=== PATIENT | female | born 1950 | race Caucasian/White ===

== ENCOUNTER 2017-11-27 12:26 | Emergency (ER) | payer MEDICARE, OTHER ==
[2017-11-27] MEDS ORDERED: Sodium Chloride 0.9% 10 ML Syringe FLUSH PRN (12:44)
[2017-11-27 12:55] LABS: BASE EXCESS ARTERIAL 1 mmol/L ((-2)-(+3)); BICARBONATE,ARTERIAL 25.4 mmol/L (22-26); O2 DELIVERY DEVICE NON REBR MASK; O2 SATURATION ARTERIAL 99 % (95-100); PCO2 ARTERIAL 42 mmHg (35-45); PO2 ARTERIAL 209 mmHg (70-100)
[2017-11-27 12:56] LABS: ALLEN TEST POSITIVE
[2017-11-27 12:57] LABS: O2 FLOW RATE 15
[2017-11-27 13:15] LABS: ANION GAP 13.8; CHLORIDE,CL 102 mmol/L (101-111); SODIUM,NA 139 mmol/L (135-145)
--- NOTE | 2017-11-27 15:26 | EDM.PDOC ---
Scribed by Meg Ojeda 11/27/17 1492 for Aimee Cervantes NP ED HPI GENERAL MEDICAL PROBLEM - General Chief Complaint: Syncope Stated Complaint: [id number] SICK Time Seen by Provider: 11/27/17 12:45 Source of Information: Reports: Patient, RN, RN Notes Reviewed History Limitations: Reports: No Limitations - History of Present Illness INITIAL COMMENTS - FREE TEXT/NARRATIVE: Patient presents to ER with family with complaint of possible carbon monoxide poisoning. Patient's states they switched propane tanks about 1 a.m.. The carbon monoxide alarm went off. He states it went off again at about 2: 30a.m. He states he opened windows and the alarm shut off and never went off again. Prior to arrival patient became very dizzy, shortness of breath and weak. Patient states she still a little dizzy at times. She states she has had hypoglycemic at times. Denies recent illness, fever, and chills. Although did feel flushed prior to episode. She has had blurred vision during episode. No chest pain, shortness of breath,nausea, vomiting and diarrhea. Onset: Today Duration: Constant Location: Reports: Chest Quality: Reports: Ache Severity: Mild Improves with: Reports: None Worsens with: Reports: None Associated Symptoms: Reports: No Other Symptoms - Related Data Allergies Allergy/AdvReac Type Severity Reaction Status Date / Time No Known Allergies Allergy Verified 11/27/17 12:53 Home Meds: Home Meds . [No Known Home Meds] 11/27/17 [History] ED ROS GENERAL - Review of Systems Review Of Systems: ROS reveals no pertinent complaints other than HPI. ED EXAM, DIZZINESS - Physical Exam Exam: See Below Exam Limited By: No Limitations General Appearance: Alert, WD/WN, No Apparent Distress Eye Exam: Bilateral Eye: EOMI, Normal Inspection, PERRL Ears: Normal External Exam, Normal Canal, Hearing Grossly Normal, Normal TMs Nose: Normal Inspection, Normal Mucosa, No Blood Throat/Mouth: Normal Inspection, Normal Lips, Normal Teeth, Normal Gums, Normal Oropharynx, Normal Voice, No Airway Compromise Head Exam: Atraumatic, Normocephalic Neck: Normal Inspection, Supple, Non-Tender, Full Range of Motion Respiratory/Chest: No Respiratory Distress, Lungs Clear, Normal Breath Sounds, No Accessory Muscle Use, Chest Non-Tender Cardiovascular: Normal Peripheral Pulses, Regular Rate, Rhythm, No Edema, No Gallop, No JVD, No Murmur, No Rub GI/Abdominal: Normal Bowel Sounds, Soft, Non-Tender, No Organomegaly, No Distention, No Abnormal Bruit, No Mass (Female) Exam: Deferred Rectal (Female) Exam: Deferred Neurological: Alert, Normal Mood/Affect, Normal Dorsiflexion, CN II-XII Intact, Normal Plantar Flexion, Normal Gait, Normal Reflexes, No Motor/Sensory Deficits , Oriented x 3 Back Exam: Normal Inspection, Full Range of Motion, NT Extremities: Normal Inspection, Normal Range of Motion, Non-Tender, No Pedal Edema, Normal Capillary Refill Psychiatric: Normal Affect, Normal Mood Skin Exam: Warm, Dry, Intact, Normal Color, No Rash EKG INTERPRETATION EKG Date: 11/27/17 Time: 12:51 Rhythm: Other (sinus rhythm) Rate (Beats/Min): 69 Gowen: Normal P-Wave: Present QRS: Normal ST-T: Normal QT: Normal Course - Vital Signs Last Recorded V/S: Last Vital Signs Temp 96.7 F 11/27/17 12:32 Pulse 88 11/27/17 14:45 Resp 18 11/27/17 12:32 BP 113/49 L 11/27/17 14:45 Pulse Ox 95 11/27/17 14:45 - Orders/Labs/Meds Orders: Active Orders 24 hr Category Date Time Status EKG Documentation Completion [RC] STAT Care 11/27/17 12:44 Active Glucose [Blood Glucose Check, Bedside] [RC] ONETIME Care 11/27/17 12:32 Active Oxygen Therapy, ED [RC] ASDIRECTED Care 11/27/17 12:45 Active Peripheral IV Care [RC] . DIRECTED Care 11/27/17 12:46 Active Head wo Cont [CT] Urgent Exams 11/27/17 13:36 Taken CARBOXYHEMOGLOBIN [REF] Stat Lab 11/27/17 12:47 Ordered Sodium Chloride 0.9% [Saline Flush] Med 11/27/17 12:44 Active 10 ml FLUSH ASDIRECTED PRN Peripheral IV Insertion Adult [OM.PC] Stat Oth 11/27/17 12:44 Ordered Medication Orders Sodium Chloride (Saline Flush) 10 ml FLUSH ASDIRECTED PRN PRN Reason: Keep Vein Open Last Admin: 11/27/17 13:05 Dose: 10 ml Labs: Laboratory Tests 11/27/17 11/27/17 11/27/17 Range/Units 12:32 12:47 12:51 WBC 9.0 (5.0-10.0) 10^3/uL RBC 4.31 (4.2-5.4) 10^6/uL Hgb 13.3 (12.0-16.0) g/dL Hct 40.5 (37.0-47.0) % MCV 94.0 (80-100) fL MCH 30.9 (27.0-34.0) pg MCHC 32.8 L (33.0-35.0) g/dL Plt Count 239 (150-450) 10^3/uL Neut % (Auto) 53.9 (42.2-75.2) % Lymph % (Auto) 37.8 (20.5-50.1) % [place] % (Auto) 6.9 (2-8) % Eos % (Auto) 1.0 (1.0-3.0) % Baso % (Auto) 0.4 (0.0-1.0) % ABG pH 7.39 (7.35-7.45) ABG pCO2 42 (35-45) mmHg ABG pO2 209 H (70-100) mmHg ABG HCO3 25.4 (22-26) mmol/L ABG O2 Saturation 99 (95-100) % ABG Base Excess 1 ((-2)-(+3)) mmol/L Edy Test Positive O2 Delivery Device Non rebr mask Oxygen Flow Rate 15 Sodium (135-145) mmol/L Potassium (3.6-5.0) mmol/L Chloride (101-111) mmol/L Carbon Dioxide (21.0-31.0) mmol/L Anion Gap BUN (7-18) mg/dL Creatinine (0.6-1.3) mg/dL Est Cr Clr Drug Dosing mL/min Estimated GFR (MDRD) BUN/Creatinine Ratio Glucose (74-105) mg/dL POC Glucose 174 H (70-105) mg/dl Calcium (8.4-10.2) mg/dl Total Bilirubin (0.2-1.0) mg/dL AST (10-42) IU/L ALT (10-60) IU/L Alkaline Phosphatase (42-121) IU/L Troponin I (0.00-0.02) ng/ml Total Protein (6.7-8.2) g/dl Albumin (3.2-5.5) g/dl Globulin Albumin/Globulin Ratio Urine Color (YELLOW) Urine Appearance (CLEAR) Urine pH (5.0-9.0) Ur Specific Harlan (1.005-1.030) Urine Protein (NEGATIVE) Urine Glucose (UA) (NEGATIVE) Urine Ketones (NEGATIVE) Urine Occult Blood (NEGATIVE) Urine Nitrite (NEGATIVE) Urine Bilirubin (NEGATIVE) Urine Urobilinogen (0.2-1.0) mg/dL Ur Leukocyte Esterase (NEGATIVE) Urine RBC /HPF Urine WBC (0-5/HPF) /HPF Ur Epithelial Cells /HPF Urine Bacteria (0-FEW/HPF) /HPF Hyaline Casts /LPF Urine Mucus /LPF 11/27/17 11/27/17 Range/Units 12:51 13:03 WBC (5.0-10.0) 10^3/uL RBC (4.2-5.4) 10^6/uL Hgb (12.0-16.0) g/dL Hct (37.0-47.0) % MCV (80-100) fL MCH (27.0-34.0) pg MCHC (33.0-35.0) g/dL Plt Count (150-450) 10^3/uL Neut % (Auto) (42.2-75.2) % Lymph % (Auto) (20.5-50.1) % [place] % (Auto) (2-8) % Eos % (Auto) (1.0-3.0) % Baso % (Auto) (0.0-1.0) % ABG pH (7.35-7.45) ABG pCO2 (35-45) mmHg ABG pO2 (70-100) mmHg ABG HCO3 (22-26) mmol/L ABG O2 Saturation (95-100) % ABG Base Excess ((-2)-(+3)) mmol/L Edy Test O2 Delivery Device Oxygen Flow Rate Sodium 139 (135-145) mmol/L Potassium 3.8 (3.6-5.0) mmol/L Chloride 102 (101-111) mmol/L Carbon Dioxide 27.0 (21.0-31.0) mmol/L Anion Gap 13.8 BUN 10 (7-18) mg/dL Creatinine 0.9 (0.6-1.3) mg/dL Est Cr Clr Drug Dosing 47.32 mL/min Estimated GFR (MDRD) > 60 BUN/Creatinine Ratio 11.11 Glucose 167 H (74-105) mg/dL POC Glucose (70-105) mg/dl Calcium 9.0 (8.4-10.2) mg/dl Total Bilirubin 0.6 (0.2-1.0) mg/dL AST 30 (10-42) IU/L ALT 20 (10-60) IU/L Alkaline Phosphatase 69 (42-121) IU/L Troponin I < 0.02 (0.00-0.02) ng/ml Total Protein 7.0 (6.7-8.2) g/dl Albumin 4.1 (3.2-5.5) g/dl Globulin 2.9 Albumin/Globulin Ratio 1.41 Urine Color Yellow (YELLOW) Urine Appearance Clear (CLEAR) Urine pH 7.5 (5.0-9.0) Ur Specific Harlan 1.015 (1.005-1.030) Urine Protein Negative (NEGATIVE) Urine Glucose (UA) Negative (NEGATIVE) Urine Ketones Negative (NEGATIVE) Urine Occult Blood Negative (NEGATIVE) Urine Nitrite Negative (NEGATIVE) Urine Bilirubin Negative (NEGATIVE) Urine Urobilinogen 0.2 (0.2-1.0) mg/dL Ur Leukocyte Esterase Small H (NEGATIVE) Urine RBC 0-5 /HPF Urine WBC 5-10 H (0-5/HPF) /HPF Ur Epithelial Cells Few /HPF Urine Bacteria Few (0-FEW/HPF) /HPF Hyaline Casts Moderate H /LPF Urine Mucus Few H /LPF Meds: Medications Generic Name Dose Route Start Last Admin Trade Name Freq PRN Reason Stop Dose Admin Sodium Chloride 10 ml 11/27/17 12:44 11/27/17 13:05 Saline Flush FLUSH 10 ml ASDIRECTED PRN Administration Keep Vein Open - Radiology Interpretation Free Text/Narrative:: Chest xray: IMPRESSION: 1. The lungs are hyperinflated, consistent with underlying small airways disease. 2. No focal pneumonia or pneumothorax. 3. Mild atelectasis right lung base. Thank you for allowing us to participate in the care of your patient. Dictated and Authenticated by: Joaquin Hernandez DO Head CT: IMPRESSION: 1. Partially calcified mass present within the high left parietal region at the midline. Most likely consideration is meningioma, however other etiologies are not excluded. Mild mass effect and surrounding edema present. Further evaluation with an MRI of the brain with and without contrast recommended in followup. 2. No evidence of acute hemorrhage. Thank you for allowing us to participate in the care of your patient. Dictated and Authenticated by: Joaquin Hernandez DO 11/27/2017 2:16 PM Central Time ([place] & [place]) See rad report - Re-Assessments/Exams Free Text/Narrative Re-Assessment/Exam: 11/27/17 15:22 Exam and radiologic findings were discussed with the patient and her family. I then called and discussed the case with Dr. Gerber, Neurologist, at [facility] in [place] (where the family preferred to doctor in regards to where they live). He states to place the patient on Acetazolamide 500mg po bid. He states he will have the patient set up for an MRI and appointment with Neurosurgery at [facility]. The patient and family state understanding. Departure - Departure Time of Disposition: 15:04 Disposition: Home, Self-Care 01 Condition: Fair Clinical Impression: Dizziness, Brain tumor - Discharge Information *PRESCRIPTION DRUG MONITORING PROGRAM REVIEWED*: No *COPY OF PRESCRIPTION DRUG MONITORING REPORT IN PATIENT HEIKE: No Referrals: PCP,None [Primary Care Provider] - Forms: ED Department Discharge Additional Instructions: RX: Acetazolamide No driving or operating heavy machinery until seen by Neurosurgery Establish with a Primary care provider this week A nurse from [facility] in [place], Neurosurgery, will call you with an appointment for a MRI as well as an appointment to see Neurosurgery. Return to the nearest ER with any further problems. - My Orders Last 24 Hours: My Active Orders 11/27/17 12:32 Glucose [Blood Glucose Check, Bedside] [RC] ONETIME 11/27/17 12:44 EKG Documentation Completion [RC] STAT Sodium Chloride 0.9% [Saline Flush] 10 ml FLUSH ASDIRECTED PRN Peripheral IV Insertion Adult [OM.PC] Stat 11/27/17 12:45 Oxygen Therapy, ED [RC] ASDIRECTED 11/27/17 12:46 Peripheral IV Care [RC] . DIRECTED 11/27/17 12:47 CARBOXYHEMOGLOBIN [REF] Stat 11/27/17 13:36 Head wo Cont [CT] Urgent - Assessment/Plan Last 24 Hours: My Active Orders 11/27/17 12:32 Glucose [Blood Glucose Check, Bedside] [RC] ONETIME 11/27/17 12:44 EKG Documentation Completion [RC] STAT Sodium Chloride 0.9% [Saline Flush] 10 ml FLUSH ASDIRECTED PRN Peripheral IV Insertion Adult [OM.PC] Stat 11/27/17 12:45 Oxygen Therapy, ED [RC] ASDIRECTED 11/27/17 12:46 Peripheral IV Care [RC] . DIRECTED 11/27/17 12:47 CARBOXYHEMOGLOBIN [REF] Stat 11/27/17 13:36 Head wo Cont [CT] Urgent I have read and agree with the documentation that has been completed regarding this visit. By signing this record, I attest that the documentation was completed in my physical presence and is an accurate record of the encounter.
--- NOTE | 2017-11-29 00:24 | EKG ---
11/27/2017 - ANTONIO GIRON - TIME: At 12:51 p.m. FINDINGS: As per my reading, sinus rhythm at 91. [facility] /[id number]
--- NOTE | 2017-11-29 00:41 | EKG ---
11/27/2017 - ANTONIO GIRON - TIME: At 12:51 p.m. FINDINGS: As per my reading, sinus rhythm at 59. [facility] /[id number]
--- NOTE | 2017-11-29 00:54 | EKG ---
11/27/2017 - ANTONIO GIRON - TIME: At 12:51 p.m. FINDINGS: Sinus rhythm at 51. [facility] /[id number]
== END 2017-11-27 15:25 | disposition home or self-care (01) ==
LOC: DL.ED 12:26
DX: D49.6 Neoplasm of unspecified behavior of brain (principal)
CPT/HCPCS: 36415; 36600; 70450; 71045; 80053; 81001; 82375; 82803; 82962; 84484; 85025; 93005; 93010; 99284; J7050